=== PATIENT | male | born 1960 | race Caucasian/White ===

== ENCOUNTER 2017-09-29 08:42 | Day surgery (SDC) | payer BC, OTHER ==
[2017-09-23 16:18] VITALS: BMI 23.4
[~2017-09-29 08:42] MED LIST: SODIUM CHLORIDE 0.9% 1,000 ML IV SCH
[2017-09-29 09:24] VITALS: RESP 18; TEMP 97.6
[2017-09-29 11:06] VITALS: BP 151/81; PULSE 103
--- NOTE | 2017-09-29 11:21 | P.PCN ---
Preoperative Diagnosis: Procedure: Tilt table test Indication for the procedure: Recurrent syncope Twelve-lead ECG Sinus rhythm heart rate 93 beats a minute and nonspecific ST-T abdomen mildly normal QT interval narrow QRS normal UT interval Tilt table test per protocol Baseline blood pressure 145/86 mmHg Baseline heart rate 100 beats a minute. Patient was tilted upright at an angle of 70 per protocol within 2-4 minutes there was a sudden drop in blood pressure that was preceded by sinus tachycardia. He should complained of knee is getting weak, being shaky, and presyncopal. The patient is laid supine blood pressure improved to 129/75 mmHg and heart rate improved to 98 beats a minute Impression Neurocardiogenic syncope Anesthesia: none Disposition: same day
== END 2017-09-29 11:20 | disposition home or self-care (01) ==
LOC: CATHEP 08:42
PROVIDERS: ATTEND Internal Medicine Clinical Cardiac Electrophysiology
DX: R55 Syncope and collapse (principal); Z79.899 Other long term (current) drug therapy
CPT/HCPCS: 93005; 93660

== ENCOUNTER 2019-03-06 21:12 | Emergency (ER) | payer MEDICARE, OTHER ==
[~2019-03-06 21:12] MED LIST changes: +ATROPINE SULFATE 0.1 MG/ML 10ML SYRINGE ONE; +CALCIUM CHLORIDE 100 MG/ML 10 ML SYRINGE ONE; +SODIUM BICARB 8.4% 50 ML SYR (1 MEQ/ML) ONE; -SODIUM CHLORIDE 0.9% 1,000 ML IV SCH
--- NOTE | 2019-03-06 21:33 | ED ---
General Adult HPI - General Stated complaint: Cardiac Arrest Time Seen by Provider: 03/06/19 21:28 - History of Present Illness Initial comments: Dictation was produced using [id number] dictation software. please excuse any grammatical, word or spelling errors. Chief Complaint: 58-year-old male presents with cardiac arrest. History of Present Illness: Patient is 58-year-old male who presents with EMS. Patient allegedly was found down in the bathroom. EMS was told by family that patient was actually down for approximately 10 minutes. EMS was called and CPR was started. Patient initial rhythm showed pulseless electrical activity. Patient underwent several rounds of cardiopulmonary resuscitation. He is given several rounds of epi. Total time of CPR was approximately 35 minutes. At approximately 15 Phu patient had ventricular fibrillation on the monitor. He is given 1 defibrillation attempt with no return of spontaneous circulation. She received proximally 7 rounds of epinephrine. Area was secured with Esvin tube. EMS reports no difficulty bagging. Unable to obtain secondary to ROS PHYSICAL EXAM: General Impression: Obtunded, cyanotic HEENT: Normocephalic atraumatic Cardiovascular: Pulseless Chest: Bilateral breath sounds Abdomen: Tympanitic abdomen, mildly distended with air Musculoskeletal: no peripheral edema ED course: 58 male presents with cardiac arrest. Patient was brought to us by EMS with active cardiopulmonary resuscitation. CPR was continued. Patient was pulseless on arrival. Torey device was continued for several cycles. No epinephrine was given in our emergency department. Patient was pulseless electrical activity on the monitor for the first second and third pulse checks. Patient was given 1 round of calcium and 2 doses of sodium bicarbonate. By the fifth pulse check patient was found to be asystole. CPR was terminated. [id number] bedside ultrasound was performed showing no cardiac activity. Time of was announced at 2123. - Related Data Home Medications Medication Instructions Recorded Confirmed Meclizine HCl 25 mg PO DAILY PRN 09/23/17 09/29/17 Multivitamins, Thera [Multivitamin 1 tab PO DAILY 09/23/17 09/29/17 (formulary)] Atorvastatin [Lipitor] 20 mg PO DAILY 09/29/17 09/29/17 Allergies Allergy/AdvReac Type Severity Reaction Status Date / Time No Known Allergies Allergy Verified 09/29/17 09:09 Review of Systems ROS Statement: Those systems with pertinent positive or pertinent negative responses have been documented in the HPI. ROS Other: All systems not noted in ROS Statement are negative. Past Medical History Past Medical History: COPD Additional Past Medical History / Comment(s): See Dr Landaverde's H&P. hx lightheaded and blackouts since march, shortness of breath on exertion, "prickly feeling lt side of body on occasion, weakness tae legs History of Any Multi-Drug Resistant Organisms: None Reported Past Surgical History: Appendectomy, Orthopedic Surgery, Tonsillectomy Additional Past Surgical History / Comment(s): rt ankle with 2 plates, lt leg varicose veins removed Past Anesthesia/Blood Transfusion Reactions: No Reported Reaction Smoking Status: Former smoker - Past Family History Mother Family Medical History: No Reported History Disposition Clinical Impression: Cardiac arrest Disposition: Condition: Undetermined Referrals: Mary Covington MD [Primary Care Provider] - 1-2 days Time of Disposition: 21:33 Preliminary Cause of : cardiac arrest
== END 2019-03-07 01:04 | disposition expired ==
LOC: EC 21:12
DX: I46.9 Cardiac arrest, cause unspecified (principal); Z87.891 Personal history of nicotine dependence; Z79.899 Other long term (current) drug therapy
CPT/HCPCS: 92950; 99285